=== PATIENT | female | born 1980 | race African-American/Black ===

== ENCOUNTER 2017-06-03 14:35 | Inpatient (IN) | payer BC, MEDICAID ==
[~2017-06-03] VITALS: Ht 162.6 cm; Wt 85.3 kg
[2017-06-03] VITALS (9 sets, daily range): BP systolic 145–184; BP diastolic 77–110; PULSE 82–94; RESP 15–32; TEMP 98.2–98.3; O2SAT 96–99
[~2017-06-03 14:35] MED LIST: AMLO10TA2 PO
[2017-06-03] MEDS ORDERED: niCARdipine INJ 25 MG in SODIUM CHLOR 0.9% 250 ML INJ 240 ML IV PRN (16:30)
[2017-06-03] MEDS ORDERED: SODIUM CHLORIDE 0.9% FLUSH 10 ML FLUSH IV FLUSH PRN (16:30)
[2017-06-03] MEDS ORDERED: NALOXONE HCL 0.4 MG/ML AMP IV PUSH PRN (16:30)
[2017-06-03] MEDS ORDERED: amLODIPine BESYLATE 5 MG TAB PO ONE (16:30)
[2017-06-03] MEDS ORDERED: PROCHLORPERAZINE INJ 10 MG/2 ML VIAL IV PUSH ONE (17:00)
--- NOTE | 2017-06-03 17:46 | RADRPT ---
EXAM DATE/TIME: 06/03/2017 17:28 [place] COMPARISON: No previous studies available for comparison. INDICATIONS : Abdomen pain MEDICAL HISTORY : None. SURGICAL HISTORY : None. ENCOUNTER: Initial ACUITY: 1 day PAIN SCORE: 8/10 LOCATION: Bilateral abdomen FINDINGS: Supine view of the abdomen was performed. The abdominal bowel gas pattern is normal. No abnormal ma sses, calcifications, or organomegaly is seen. The osseous structures are unremarkable. CONCLUSION: 1. No acute findings. Derrick Jaimes MD on June 03, 2017 at 17:41 Board Certified Radiologist. This report was verified electronically.
[2017-06-03] MEDS ORDERED: ONDANSETRON HCL 4 MG/2 ML VIAL IV PUSH PRN (18:00)
[2017-06-03] MEDS ORDERED: PROMETHAZINE HCL 25 MG SUPP RECTAL PRN (18:00)
[2017-06-03] MEDS: SODIUM CHLORIDE 0.9% FLUSH 10 ML FLUSH IV FLUSH SCH (20:28)
[2017-06-03] MEDS ORDERED: SENNOSIDES 8.6 MG TAB PO PRN (21:00)
[2017-06-03] MEDS: ACETAMINOPHEN 325 MG TAB PO PRN (21:42)
[2017-06-04] VITALS (49 sets, daily range): BP systolic 92–155; BP diastolic 64–96; PULSE 75–112; RESP 15–27; TEMP 97.9–99.5; O2SAT 96–99
[2017-06-04] MEDS: niCARdipine 25 MG/NS 250 ML Vial2Bag or IV room IV PRN ×4 (01:38→06:54)
[2017-06-04] MEDS: ACETAMINOPHEN 325 MG TAB PO PRN ×3 (01:43→09:01)
[2017-06-04 04:42] LABS: AUTOMATED NEUTROPHIL # 13.4 TH/MM3 (1.8-7.7); BASOPHIL % 0.2 % (0.0-2.0); HEMATOCRIT 28.6 % (35.0-46.0); HEMOGLOBIN 9.2 GM/DL (11.6-15.3); LYMPH % 8.3 % (9.0-44.0); LYMPHOCYTE # 1.3 TH/MM3 (1.0-4.8); MEAN CELL VOLUME 69.8 FL (80.0-100.0); MEAN CORPUSCULAR HEMOGLOBIN 22.5 PG (27.0-34.0); MEAN CORPUSCULAR HGB CONC 32.3 % (32.0-36.0); MEAN PLATELET VOLUME 7.4 FL (7.0-11.0); MONO % 3.3 % (0.0-8.0); MONOCYTE # 0.5 TH/MM3 (0-0.9); NEUT % 88.2 % (16.0-70.0); PLATELET COUNT 339 TH/MM3 (150-450); WHITE BLOOD COUNT 15.3 TH/MM3 (4.0-11.0)
[2017-06-04 05:05] LABS: BICARBONATE 24.3 MEQ/L (21.0-32.0); CALCIUM 8.7 MG/DL (8.5-10.1)
[2017-06-04 05:09] LABS: CREATININE 1.1 MG/DL (0.50-1.00)
[2017-06-04] MEDS ORDERED: CHLORHEXIDINE GLUCONATE 2 % 1 PACK (2 CLOTHS)(extra cloths) TOPICAL PRN (07:00)
[2017-06-04 08:15] LABS: TARGET CELLS 1+ (NORMAL)
[2017-06-04 08:16] LABS: OVALOCYTES 1+ (NORMAL)
[2017-06-04] MEDS: SODIUM CHLORIDE 0.9% FLUSH 10 ML FLUSH IV FLUSH SCH (09:00)
[2017-06-04] MEDS ORDERED: POTASSIUM CHLORIDE 10 MEQ CONTROLLED RELEASE TAB PO SCH (10:00)
[2017-06-04] MEDS ORDERED: PNEUMOCOCCAL POLYVALENT INJ 25 MCG/0.5 ML SYR IM ONE (10:00)
[2017-06-04] MEDS ORDERED: CARVEDILOL 12.5 MG TAB PO SCH (10:00)
--- NOTE | 2017-06-04 11:39 | HHI.HP ---
[facility] Service [facility] Primary Care Physician No Primary Care Physician Admission Diagnosis Diagnoses: Chief Complaint: Elevated blood pressure with headache Travel History International Travel<30 Days: No Contact w/Intl Traveler <30 Da: No Traveled to Known Affected Are: No History of Present Illness This patient is a 36-year-old female with known hypertension. She ran out of her medications about 2 months ago. She had been taking amlodipine. She says that she can have increased headaches and was unable to follow-up with a new primary care doctor. She went to the emergency room and was found to have a blood pressure of 208/122. Patient has been on antihypertensives intravenously. She did require IV nicardipine and was admitted to the ICU. He had associated nausea and vomiting with headache which was 10 out of 10. Headache improved with blood pressure control. This patient's nausea and vomiting has improved also with Phenergan suppositories. Patient otherwise feels much better. Her blood pressures improved as well. Review of Systems Constitutional: DENIES: Diaphoretic episodes, Fatigue, Fever, Weight gain, Weight loss, Chills, Dizziness, Change in appetite, Night Sweats Endocrine: DENIES: Abnorml menstrual pattern, Heat/cold intolerance, Polydipsia , Polyuria, Polyphagia Eyes: DENIES: Blurred vision, Diplopia, Eye inflammation, Eye pain, Vision loss , Photosensitivity, Double Vision Ears, nose, mouth, throat: DENIES: Tinnitus, Hearing loss, Vertigo, Nasal discharge, Oral lesions, Throat pain, Hoarseness, Ear Pain, Running Nose, Epistaxis, Sinus Pain, Toothache, Odynophagia Respiratory: DENIES: Apneas, Cough, Snoring, Wheezing, Hemoptysis, Sputum production, Shortness of breath Cardiovascular: DENIES: Chest pain, Palpitations, Syncope, Dyspnea on Exertion , PND, Lower Extremity Edema, Orthopnea, Claudication Gastrointestinal: DENIES: Abdominal pain, Black stools, Bloody stools, Constipation, Diarrhea, Nausea, Vomiting, Difficulty Swallowing, Anorexia Genitourinary: DENIES: Abnormal vaginal bleeding, Dysmenorrhea, Dyspareunia, Sexual dysfunction, Urinary frequency, Urinary incontinence, Urgency, Hematuria , Dysuria, Nocturia, Vaginal discharge Musculoskeletal: DENIES: Joint pain, Muscle aches, Stiffness, Joint Swelling, Back pain, Neck pain Integumentary: DENIES: Abnormal pigmentation, Pruritus, Rash, Nail changes, Breast masses, Breast skin changes, Nipple discharge Hematologic/lymphatic: DENIES: Bruising, Lymphadenopathy Immunologic/allergic: DENIES: Eczema, Urticaria Neurologic: COMPLAINS OF: Headache, DENIES: Abnormal gait, Localized weakness, Paresthesias, Seizures, Speech Problems, Tremor, Poor Balance Psychiatric: DENIES: Anxiety, Confusion, Mood changes, Depression, Hallucinations, Agitation, Suicidal Ideation, Homicidal Ideation, Delusions Except as stated in HPI: all other systems reviewed are Neg Past Family Social History Past Medical History Hypertension Past Surgical History Denies Reported Medications Reviewed in the EMR Allergies: Coded Allergies: aspirin (Verified Allergy, Severe, HIVES, 06/03/17) caffeine (Verified Allergy, Severe, HIVES, 06/03/17) Active Ordered Medications Reviewed in the EMR Family History Mother and father have hypertension, mother has diabetes Social History No tobacco or alcohol dependency, employed Physical Exam Vital Signs Vital Signs Date Time Temp Pulse Resp B/P (MAP) Pulse Ox O2 Delivery O2 Flow Rate FiO2 06/04/17 11:01 102 17 148/75 (99) 06/04/17 10:46 92 16 134/76 (95) 06/04/17 10:31 90 15 134/82 (99) 06/04/17 10:16 102 17 132/83 (99) 06/04/17 10:01 23 06/04/17 10:01 98 17 137/81 (99) 06/04/17 10:00 77 06/04/17 09:46 108 18 142/83 (102) 06/04/17 09:31 102 18 148/83 (104) 06/04/17 09:16 96 17 154/96 (115) 06/04/17 09:01 94 16 155/90 (111) 06/04/17 08:46 84 17 140/83 (102) 06/04/17 08:16 98.9 86 17 143/88 (106) 06/04/17 08:16 86 17 143/88 (106) 06/04/17 08:00 75 3/5/18 07:45 104 27 151/92 (111) 06/04/17 07:45 104 27 151/92 (111) 06/04/17 07:30 100 17 125/82 (96) 06/04/17 07:30 100 17 125/82 (96) 06/04/17 07:15 100 15 121/79 (93) 06/04/17 07:00 104 16 126/75 (92) 06/04/17 06:54 104 112/77 06/04/17 06:30 112 135/68 06/04/17 06:15 110 15 120/66 (84) 06/04/17 06:00 99.5 106 15 139/82 (101) 98 06/04/17 06:00 106 06/04/17 06:00 106 139/82 06/04/17 05:30 106 125/86 06/04/17 05:30 106 16 125/86 (99) 06/04/17 05:15 106 20 130/87 (101) 06/04/17 05:10 135/84 (101) 06/04/17 04:45 104 20 140/85 (103) 06/04/17 04:45 104 140/85 06/04/17 04:30 110 16 133/75 (94) 06/04/17 04:30 110 133/75 06/04/17 04:15 108 15 129/72 (91) 06/04/17 04:15 108 129/72 06/04/17 04:00 100 06/04/17 04:00 99.1 100 15 148/83 (104) 06/04/17 04:00 100 148/83 06/04/17 03:45 102 16 141/79 (99) 06/04/17 03:30 110 17 132/72 (92) 06/04/17 03:30 110 132/72 06/04/17 03:15 112 17 124/74 (91) 06/04/17 03:00 112 17 128/67 (87) 06/04/17 03:00 112 128/67 06/04/17 02:45 110 16 126/71 (89) 06/04/17 02:30 110 17 123/64 (83) 06/04/17 02:30 110 123/64 06/04/17 02:15 108 06/04/17 02:15 108 16 121/70 (87) 06/04/17 02:15 108 121/70 06/04/17 02:00 106 16 137/72 (93) 06/04/17 02:00 106 06/04/17 02:00 106 06/04/17 02:00 106 137/72 06/04/17 02:00 106 16 137/72 (93) 97 06/04/17 01:45 102 22 148/78 (101) 06/04/17 01:45 102 06/04/17 01:45 102 148/78 06/04/17 01:38 84 154/90 06/04/17 01:17 86 16 154/90 (111) 06/04/17 01:17 86 06/04/17 00:59 99.5 86 16 142/80 (100) 96 06/04/17 00:00 98.3 96 16 140/79 (99) 06/04/17 00:00 96 06/03/17 23:00 82 16 159/84 (109) 06/03/17 22:00 86 06/03/17 22:00 86 17 163/77 (105) 98 06/03/17 21:00 86 20 184/92 (122) 99 06/03/17 20:00 98.3 82 15 156/94 (114) 96 06/03/17 20:00 84 06/03/17 19:00 94 25 145/110 (122) 06/03/17 18:03 89 06/03/17 18:00 90 32 150/80 (103) 06/03/17 17:00 90 32 147/98 (114) 06/03/17 16:26 98.2 86 22 160/89 (112) 99 Physical Exam GENERAL: This is a well-nourished, well-developed patient, in no apparent distress. SKIN: No rashes, ecchymoses or lesions. Cool and dry. HEAD: Atraumatic. Normocephalic. No temporal or scalp tenderness. EYES: Pupils equal round and reactive. Extraocular motions intact. No scleral icterus. No injection or drainage. ENT: Nose without bleeding, purulent drainage or septal hematoma. Throat without erythema, tonsillar hypertrophy or exudate. Uvula midline. Airway patent. NECK: Trachea midline. No JVD or lymphadenopathy. Supple, nontender, no meningeal signs. CARDIOVASCULAR: Sinus tachycardia without murmurs, gallops, or rubs. RESPIRATORY: Clear to auscultation. Breath sounds equal bilaterally. No wheezes , rales, or rhonchi. GASTROINTESTINAL: Abdomen soft, non-tender, nondistended. No hepato-splenomegaly , or palpable masses. No guarding. MUSCULOSKELETAL: Extremities without clubbing, cyanosis, or edema. No joint tenderness, effusion, or edema noted. No calf tenderness. Negative Homans sign bilaterally. NEUROLOGICAL: Awake and alert. Cranial nerves II through XII intact. Motor and sensory grossly within normal limits. Five out of 5 muscle strength in all muscle groups. Normal speech. Laboratory Laboratory Tests Test 06/03/17 17:30 06/04/17 04:35 Nasal Screen MRSA (PCR) MRSA NOT DETECTED White Blood Count 15.3 Red Blood Count 4.10 Hemoglobin 9.2 Hematocrit 28.6 Mean Corpuscular Volume 69.8 Mean Corpuscular Hemoglobin 22.5 Mean Corpuscular Hemoglobin Concent 32.3 Red Cell Distribution Width 17.0 Platelet Count 339 Mean Platelet Volume 7.4 Neutrophils (%) (Auto) 88.2 Lymphocytes (%) (Auto) 8.3 Monocytes (%) (Auto) 3.3 Eosinophils (%) (Auto) 0.0 Basophils (%) (Auto) 0.2 Neutrophils # (Auto) 13.4 Lymphocytes # (Auto) 1.3 Monocytes # (Auto) 0.5 Eosinophils # (Auto) 0.0 Basophils # (Auto) 0.0 CBC Comment AUTO DIFF Differential Comment AUTO DIFF CONFIRMED Platelet Estimate NORMAL Platelet Morphology Comment NORMAL Target Cells 1+ Ovalocytes 1+ Blood Urea Nitrogen 12 Creatinine 1.10 Random Glucose 116 Calcium Level 8.7 Sodium Level 136 Potassium Level 3.4 Chloride Level 103 Carbon Dioxide Level 24.3 Anion Gap 9 Estimat Glomerular Filtration Rate 68 Thyroid Stimulating Hormone 3rd Gen 0.579 Result Diagram: 06/04/17 0435 06/04/17 0435 Imaging Last Impressions Abdomen X-Ray 06/03/17 0000 Signed Impressions: Service Date/Time: Saturday, June 03, 2017 17:28 - CONCLUSION: 1. No acute findings. Derrick Jaimes MD Assessment and Plan Problem List: (1) Hypertensive urgency ICD Code: I16.0 - Hypertensive urgency Plan: Continue with oral medications (home Norvasc and add Coreg), wean off nicardipine drip Follow-up echocardiogram (2) Nausea & vomiting ICD Code: R11.2 - Nausea with vomiting, unspecified Plan: KUB unremarkable, nausea resolved (3) Hypokalemia ICD Code: E87.6 - Hypokalemia Assessment and Plan Pending patient's blood pressure control likely discharge home on oral medications Code Status Full code Discussed Condition With Patient, ER in [facility] Physician Certification 2 Midnight Certification Type: Admission for Inpatient Services Order for Inpatient Services The services are ordered in accordance with Medicare regulations or non- Medicare payer requirements, as applicable. In the case of services not specified as inpatient-only, they are appropriately provided as inpatient services in accordance with the 2-midnight benchmark. Estimated LOS (days): 2 2 days is the estimated time the patient will need to remain in the hospital, assuming treatment plan goals are met and no additional complications. Post-Hospital Plan: Dilma Marinelli MD Jun 04, 2017 11:39
[2017-06-04] MEDS ORDERED: LISI2.5T3 PO (14:31)
--- NOTE | 2017-06-04 14:31 | HHI.DCPOC ---
Discharge Care Plan Diagnosis: (1) Hypertensive urgency Goals to Promote Your Health * To prevent worsening of your condition and complications * To maintain your health at the optimal level Directions to Meet Your Goals Take your medications as prescribed Follow your dietary instruction Follow activity as directed Keep your appointments as scheduled Take your immunizations and boosters as scheduled If your symptoms worsen call your PCP, if no PCP go to Urgent Care Center or Emergency Room Smoking is Dangerous to Your Health. Avoid second hand smoke Call the 24-hour hour crisis hotline for domestic abuse at Dilma Kapadia MD Jun 04, 2017 14:31
[2017-06-04] MEDS ORDERED: CARV12.5 PO (14:34)
--- NOTE | 2017-06-04 14:49 | ECHRPT ---
Indication: HYPERTENSIVE HEART DIS CONCLUSIONS Normal left ventricular size. Mild concentric left ventricular hypertrophy. No regional wall motion abnormalities are present. The left ventricular systolic function is normal with an estimated ejection fraction in the range of 55-60%. Trace mitral valve regurgitation. There is trace to mild tricuspid valve regurgitation. The estimated pulmonary arterial pressure is 38 mmHg. BP: 112 / 77 HR: 104 Rhythm: Sinus MEASUREMENTS (Male / Female) Normal Values Technical Quality:Fair 2D ECHO LV Diastolic Diameter PLAX 4.5 cm 4.2 - 5.9 / 3.9 - 5.3 cm LV Systolic Diameter PLAX 3.4 cm IVS Diastolic Thickness 1.0 cm 0.6 - 1.0 / 0.6 - 0.9 cm LVPW Diastolic Thickness 1.0 cm 0.6 - 1.0 / 0.6 - 0.9 cm LV Relative Wall Thickness 0.4 RV Internal Dim ED PLAX 2.2 cm LVOT Diameter 1.9 cm Aortic Root Diameter 2.6 cm LA Systolic Diameter LX 2.5 cm 3.0 - 4.0 / 2.7 - 3.8 cm M-MODE AV Cusp Separation MM 2.1 cm DOPPLER AV Peak Velocity 130.0 cm/s AV Peak Gradient 6.8 mmHg AV Mean Gradient 3.0 mmHg AV Velocity Time Integral 19.9 cm LVOT Peak Velocity 115.0 cm/s LVOT Peak Gradient 5.3 mmHg LVOT Velocity Time Integral 18.1 cm AV Area Cont Eq vti 2.6 cm AV Area Cont Eq pk 2.5 cm Mitral E Point Velocity 92.7 cm/s Mitral A Point Velocity 100.0 cm/s Mitral E to A Ratio 0.9 LV E' Lateral Velocity 8.8 cm/s Mitral E to LV E' Lateral Ratio 10.6 LV E' Septal Velocity 7.9 cm/s Mitral E to LV E' Septal Ratio 11.7 TR Peak Velocity 267.0 cm/s TR Peak Gradient 28.5 mmHg Right Atrial Pressure 10.0 mmHg Pulmonary Artery Systolic Pressu 38.5 mmHg Right Ventricular Systolic Press 38.5 mmHg PV Peak Velocity 96.1 cm/s PV Peak Gradient 3.7 mmHg FINDINGS LEFT VENTRICLE Normal left ventricular size. Mild concentric left ventricular hypertrophy. No regional wall motion abnormalities are present. The left ventricular systolic function is normal with an estimated ejection fraction in the range of 55-60%. RIGHT VENTRICLE Normal right ventricular size and systolic function. LEFT ATRIUM The left atrial size is normal. RIGHT ATRIUM The right atrial size is normal. ATRIAL SEPTUM Normal atrial septal thickness without atrial level shunting by limited color doppler interrogation. AORTA The aortic root and proximal ascending aorta are normal in size on limited imaging. MITRAL VALVE Trace mitral valve regurgitation. AORTIC VALVE Trileaflet aortic valve. No aortic valve stenosis or regurgitation. TRICUSPID VALVE There is trace to mild tricuspid valve regurgitation. The estimated pulmonary arterial pressure is 38 mmHg. PULMONARY VALVE Trivial pulmonary valve regurgitation. VESSELS The inferior vena cava is normal in size. PERICARDIUM No pericardial effusion. Ruddy Street MD (Electronically Signed) Final Date:04 June 2017 14:48
[2017-06-05] MEDS ORDERED: CHLORHEXIDINE GLUCONATE 2 % 1 PACK (2 CLOTHS)(taper/protocol) TOPICAL SCH (04:00)
== END 2017-06-04 16:20 | disposition home or self-care (01) | DRG 305 ==
LOC: PHEDDLT 16:22 → PHICU 16:24
PROVIDERS: ADMIT Hospitalist; ATTEND Hospitalist
DX: I16.0 Hypertensive urgency (principal); E87.6 Hypokalemia; I10 Essential (primary) hypertension; R11.2 Nausea with vomiting, unspecified; Z88.6 Allergy status to analgesic agent
CPT/HCPCS: 74018; 80048; 84443; 85025; 87641; 90732; 93306; J0780; J7050